=== PATIENT | male | born 1965 | race Hispanic/Latino ===

== ENCOUNTER → 2023-03-02 | Emergency (ER) | payer SELFPAY ==
[~2023-03-02] MED LIST: FENTANYL CITR 100 MCG/2 ML ONE; NA CHLORIDE 0.9% 1,000 ML ONE; TDAP (DIPHTH,PERTUSS(ACELL),TET VAC) 0.5 ML VIAL IMVAC ONE
--- OUTSIDE RECORDS SUMMARY | 2023-03-02 14:57 | XMS REPORT | Continuity of Care Document ---
Author Name Unknown Address [address] [place] [address] thconnect Address [address] [place] [address] [address] [place] [address] Care Team Providers Care Car Shifter Name Role Phone Unavailable Unavailable Unavailable
[2023-03-02 15:45] LABS: Absolute Lymphocytes (CBC) 1.1 K/uL (0.7-4.9); Hematocrit 43.5 % (39.6-49.0); Lymphocytes % 8.9 % (15.3-44.8); MCV 90.4 fL (80-100); MPV 9.3 fL (7.6-11.3); Platelets 263 thou/uL (152-406); RBC Red Blood Cell Count 4.81 M/uL (4.33-5.43)
[2023-03-02 16:10] LABS: Bilirubin Direct 0.1 mg/dL (0-0.2); Bilirubin Indirect, Calculated 0.4 mg/dL (0.2-0.8); Bilirubin Total 0.5 mg/dL (0.2-1.0); Potassium 3.4 mEq/L (3.5-5.1); Protein, Total 8.2 g/dL (6.4-8.2)
--- NOTE | 2023-03-02 17:24 | RAD REPORT ---
EXAM DESCRIPTION: CT - Head C Spine Leon Iraheta - 03/02/2023 4:36 pm CLINICAL HISTORY: fall from roof COMPARISON: No comparisons TECHNIQUE: Head and cervical spine CT images were obtained without IV contrast. Chest, abdomen, and pelvis CT images were obtained following intravenous administration of 95 mL Isovue-300. Multiplanar reformats were generated and reviewed. All CT scans are performed using dose optimization technique as appropriate and may include automated exposure control or mA/KV adjustment according to patient size. FINDINGS: CT HEAD: No intracranial hemorrhage, mass effect, or edema. No evidence of acute territorial infarct. No midli ne shift or abnormal fluid collection. The ventricles are normal in caliber and configuration for age . Basal cisterns are patent. Mastoid aircells and paranasal sinuses are clear. No acute skull fractur e. CT CERVICAL SPINE: No acute cervical spine fracture or subluxation. Vertebral body heights are well maintained. Facet natalie ints are normal in alignment. No hyperattenuating canal hematoma. Extensive dental and periodontal di sease, with large periapical collections along the roots of the right posterior-most 3 maxillary mola rs. Prevertebral and paraspinous soft tissues are unremarkable. CT CHEST: No pneumothorax, pulmonary contusion or pleural fluid collection. No mediastinal hematoma and the aor ta and pulmonary arteries are unremarkable. No chest will mass or abnormal axillary finding. No displ aced rib fracture or other significant bony finding. CT ABDOMEN/ PELVIS: No evidence of traumatic injury to solid abdominal viscera. Gallbladder and biliary tree are unremark able. No bowel injury or significant finding. No free air, free fluid or abnormal fat stranding. Smal l left inguinal hernia containing fat. No urinary bladder abnormality. Mildly comminuted superior endplate compression deformity at L2. IMPRESSION: Mildly comminuted superior endplate compression deformity at L2. No other acute traumatic findings. Extensive dental and periodontal disease, with large periapical collections along the roots of the ri ght posterior most 3 maxillary molars.
--- NOTE | 2023-03-02 18:11 | ER ---
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 APPROXIMATELY 7 db FT. NO LOC. AMBULATORY ON SCENE. COMPLAINS OF LOWER LUMBAR PAIN AND LEFT FLANK PAIN. Coronavirus screen: Client denies travel out of the [place] in the last 14 days. At this time, the client does not indicate any symptoms associated with coronavirus-19. Ebola Screen: Patient negative for fever greater than or equal to 101.5 degrees Fahrenheit, and additional compatible Ebola Virus Disease symptoms Patient denies exposure to infectious person. Patient denies travel to an Ebola-affected area in the 21 days before illness onset. No symptoms or risks identified at this time. Initial Sepsis Screen: Does the patient meet any 2 criteria? No. Patient's initial sepsis screen is negative. Does the patient have a suspected source of infection? No. Patient's initial sepsis screen is negative. Risk Assessment: Do you want to hurt yourself or someone else? Patient reports no desire to harm self or others. Onset of symptoms was March 02, 2023. Mechanism of Injury: Fall from 1st story approximately 7 feet. 14:55 Method Of Arrival: EMS: [facility] db 14:55 Acuity: STACIE 2 db 15:00 Mechanism of Injury: Fall. db 15:12 Care prior to arrival: Cervical collar in place. Placed on backboard. Trauma event db details: Injury occurred in the [facility]. Trauma Activation: Not Applicable Physician: ED Physician; Name: ; Notified At: ; Arrived At: Physician: General Surgeon; Name: ; Notified At: ; Arrived At: Physician: Radiology; Name: ; Notified At: ; Arrived At: Physician: Respiratory; Name: ; Notified At: ; Arrived At: Physician: Lab; Name: ; Notified At: ; Arrived At: Historical: - Allergies: 15:11 No Known Allergies; db - Home Meds: 15:11 lisinopril 10 mg Oral tablet 1 tabs daily [Active]; db - PMHx: 15:11 High Cholesterol; Hypertensive disorder; db - Immunization history:: Last tetanus immunization: unknown. - Social history:: Smoking status: Patient denies any tobacco usage or history of. - Immunization history: Last tetanus immunization: unknown. Screenin:13 Abuse screen: Denies threats or abuse. Denies injuries from another. Tuberculosis db screening: No symptoms or risk factors identified. 15:14 [facility] ED Fall Risk Assessment (Adult) History of falling in the last 3 months, db including since admission Yes- single mechanical fall (1 pt) Confusion or Disorientation No (0 pts) Intoxicated or Sedated No (0 pts) Impaired Gait No (0 pts) Mobility Assist Device Used No (0 pt) Altered Elimination No (0 pt) Score/Fall Risk Level 0 - 2 = Low Risk Oriented to surroundings, Maintained a safe environment. Nutritional screening: No deficits noted. Primary Survey: 16:15 NO uncontrolled hemorrhage observed. Breathing/Chest: Spontaneous respiratory effort, db equal unlabored respirations, breath sounds clear bilaterally, regular pattern, symmetrical chest rise and fall. Circulation: No external hemorrhage present. Regular and strong central pulse, skin warm/dry/normal color. Disability Client is alert. Exposure/Environment: All clothing and personal items were removed. A warming method has been applied: A warm blanket has been provided to the patient. Reassessment Alertness and Airway: Awake and alert. The airway is patent. Breathing: Spontaneous respiratory effort, equal unlabored respirations, breath sounds clear bilaterally, regular pattern with symmetrical chest rise and fall. Circulation: No external hemorrhage noted. Regular and strong central pulse, skin warm/dry/normal color. Disability: Alert. Assessment: 15:00 Reassessment: BACK BOARD REMOVED BY DR. MORRELL. db 15:12 Reassessment: Patient appears in no apparent distress at this time. Patient and/or db family updated on plan of care and expected duration. Pain level reassessed. Patient is alert, oriented x 3, equal unlabored respirations, skin warm/dry/pink. General: Appears in no apparent distress. comfortable, Behavior is calm, cooperative. Pain: Complains of pain in back. Neuro: Level of Consciousness is awake, alert, obeys commands, Oriented to person, place, time, situation. Respiratory: Airway is patent Respiratory effort is even, unlabored, Respiratory pattern is regular, symmetrical. Musculoskeletal: Circulation, motion, and sensation intact. Capillary refill < 3 seconds, Range of motion: intact in all extremities. Vital Signs: 14:55 BP 120 / 80; Pulse 88; Resp 18; Temp 98; Pulse Ox 97% ; Weight 72.57 kg; Height 4 ft. 6 db in. ; 16:00 BP 133 / 88; Pulse 85; Resp 16; Pulse Ox 99% ; db 17:30 BP 144 / 96; Pulse 90; Resp 16; Pulse Ox 98% on R/A; db 18:33 BP 139 / 96; Pulse 86; Resp 18; Pulse Ox 98% ; db 14:55 Body Mass Index 37.19 (72.57 kg, 139.7 cm) db [place] Coma Score: 15:13 Eye Response: spontaneous(4). Motor Response: obeys commands(6). Verbal Response: db oriented(5). Total: 15. Trauma Score (Adult): 15:13 Eye Response: spontaneous(1); Verbal Response: oriented(1); Motor Response: obeys db commands(2); Systolic BP: > 89 mm Hg(4); Respiratory Rate: 10 to 29 per min(4); [place] Score: 15; Trauma Score: 12 ED Course: 15:02 Patient arrived in ED. iw 15:05 Elsa Field [facility]-C [facility]. kb 15:05 Mason Morrell MD is Attending Physician. kb 15:06 Cait Cooper, MIKE is Primary Nurse. db 15:10 Triage completed. db 15:11 Arm band placed on Patient placed in an exam room. db 15:13 Patient has correct armband on for positive identification. Bed in low position. Call db light in reach. Side rails up X2. 15:13 Patient maintains SpO2 saturation greater than 95% on room air. db 15:30 Inserted saline lock: 20 gauge in right antecubital area, using aseptic technique. bc6 Blood collected. 18:00 Thermoregulation: warm blanket given to patient. db 18:10 Germain Aggarwal MD is Referral Physician. ec2 18:45 Provided Education on: DISCHARGE. db 18:45 No provider procedures requiring assistance completed. IV discontinued, intact, db bleeding controlled, No redness/swelling at site. Administered Medications: 16:00 Drug: Boostrix Tdap IM 0.5 ml IM once; as a single dose Route: IM; Site: right deltoid; db 18:52 Follow up: Response: (VIS) Vaccine information sheet provided today. Questions and/or db concerns addressed. VIS edition date: Oct 08, 2020.; No adverse reaction 16:15 Drug: fentaNYL (PF) IVP 100 mcg IVP once Route: IVP; Site: right antecubital; db 16:15 Drug: NS 0.9% IV 1000 ml IV at 1 bolus Per protocol; 1000 mL bolus Route: IV; Rate: 1 db bolus; Site: right antecubital; 16:15 CANCELLED (Duplicate Order): diph,pertus(acel),tetanus vac (pf)0.5 ml IM once; db indicated for adults and teenagers 11 to 64 years of age Medication: 18:45 Vaccine Information Statement (VIS) provided today. Questions and/or concerns db addressed. VIS edition date: October 08, 2020. Outcome: 18:10 Discharge ordered by . ec2 18:44 Discharged to home ambulatory, with friend, db 18:44 Condition: stable 18:44 Patient's length of stay in the Emergency Department was greater than 2 hours. Patient's length of stay was extended due to staffing issues within the emergency department. 18:45 Discharge instructions given to patient, Instructed on discharge instructions, follow db up and referral plans. Prescriptions given X 1, 18:53 Patient left the ED. iw Signatures: Elsa Field, INDIAN BLANKET WEAVER-C INDIAN BLANKET WEAVER-Ckb Taylor Rodriguez RN MIKE iw Cait Copoer RN RN db Elaine Meza 6 Mason Morrell MD MD ec2 Corrections: (The following items were deleted from the chart) 18:52 18:45 VIS not applicable for this client. db db 18:53 18:45 VIS not applicable for this client. db db
--- NOTE | 2023-03-02 18:12 | EDPHYS ---
Physician Documentation [facility] Name: Scar Bean Age: 57 yrs Sex: Male : 1965 Arrival Date: 03/02/2023 Time: 14:54 Bed 17 Private MD: ED Physician Mason Morrell HPI: 03/02 15:08 This 57 yrs old Male presents to ER via Unassigned with complaints of Fall ec2 Injury, Back Injury. 15:08 Patient arrives today as a trauma. Patient states that he was working on the roof ec2 subsequently fell off the roof approximately 7 feet. Patient reports no LOC, no blood thinner use. Patient reports history of hypertension, unsure which blood pressure medication he is on. Patient reports general body pain, worse at his mid back and low back. Denies any abdominal pain however does complain of left rib pain.. Historical: - Allergies: 15:11 No Known Allergies; db - Home Meds: 15:11 lisinopril 10 mg Oral tablet 1 tabs daily [Active]; db - PMHx: 15:11 High Cholesterol; Hypertensive disorder; db - Immunization history:: Last tetanus immunization: unknown. - Social history:: Smoking status: Patient denies any tobacco usage or history of. - Immunization history: Last tetanus immunization: unknown. ROS: 15:08 Constitutional: as per hpi ec2 Exam: 15:08 Constitutional: GEN: No acute distress HEENT: -Head: atraumatic -Eyes: EOMI CV: ec2 regular rate LUNGS: no respiratory distress ABD: non-tender, soft, nontender, no guarding, not rigid SKIN: Scattered abrasions noted throughout MSK: No C-spine TTP, c-collar in place. T-spine with tenderness to palpation, no crepitus appreciated. L-spine with tenderness to palpation, no crepitus appreciated. Chest wall with left lower rib TTP, no deformities or crepitus appreciated. RUE w/o bony deformity LUE w/o bony deformity RLE w/o bony deformity LLE w/o bony deformity NEURO: moves all extremities equally, GCS 15 (E4, V5, M6) Vital Signs: 14:55 BP 120 / 80; Pulse 88; Resp 18; Temp 98; Pulse Ox 97% ; Weight 72.57 kg; Height 4 ft. 6 db in. ; 16:00 BP 133 / 88; Pulse 85; Resp 16; Pulse Ox 99% ; db 17:30 BP 144 / 96; Pulse 90; Resp 16; Pulse Ox 98% on R/A; db 18:33 BP 139 / 96; Pulse 86; Resp 18; Pulse Ox 98% ; db 14:55 Body Mass Index 37.19 (72.57 kg, 139.7 cm) db [place] Coma Score: 15:13 Eye Response: spontaneous(4). Motor Response: obeys commands(6). Verbal Response: db oriented(5). Total: 15. Trauma Score (Adult): 15:13 Eye Response: spontaneous(1); Verbal Response: oriented(1); Motor Response: obeys db commands(2); Systolic BP: > 89 mm Hg(4); Respiratory Rate: 10 to 29 per min(4); Esvin Score: 15; Trauma Score: 12 MDM: 15:05 Patient medically screened. 15:08 Data reviewed: vital signs. ED course: Patient arrives today for evaluation after a ec2 fall from the roof. Examination remarkable for MSK findings as noted above. Will obtain CT imaging of the head, C-spine, chest abdomen and pelvis to evaluate for traumatic pathology. Currently considering process such as intracranial brain bleed, C/T/L-spine fractures, solid organ injury, rib fractures.. 16:11 ED course: CBC shows slight leukocytosis. Metabolic profile with slight hypokalemia ec2 noted. Liver profile unremarkable, lipase within normal ranges. . 17:50 ED course: CT of the head, C-spine, chest abdomen and pelvis show mildly comminuted ec2 compression fracture compression fracture at L2. . 18:09 ED course: On reassessment patient with minimal discomfort to the area, will prescribe ec2 pain medications and have him follow-up with orthopedic surgery. Patient with no neurodeficits and intact strength in the bilateral lower extremities.. 03/02 15:08 Order name: Type And Screen ec2 03/02 15:47 Order name: CBC with Automated Diff; Complete Time: 16:10 EDMS 03/02 16:10 Order name: Basic Metabolic Panel; Complete Time: 16:10 EDMS 03/02 16:10 Order name: Liver (Hepatic) Function; Complete Time: 16:10 EDMS 03/02 16:10 Order name: Lipase; Complete Time: 16:10 EDMS 03/02 16:31 Order name: Type and Screen; Complete Time: 16:45 EDMS 03/02 16:36 Order name: ABO/RH no charge; Complete Time: 16:45 EDMS 03/02 15:08 Order name: CT Traumagram (Head C Spine CAP W Con) ec2 03/02 17:25 Order name: CT; Complete Time: 17:49 EDMS 03/02 15:08 Order name: EKG; Complete Time: 19:11 ec2 03/02 15:08 Order name: EKG - Nurse/Tech; Complete Time: 16:07 ec2 03/02 15:08 Order name: IV Saline Lock; Complete Time: 15:30 ec2 03/02 15:08 Order name: Labs collected and sent; Complete Time: 15:30 ec2 03/02 15:08 Order name: NPO; Complete Time: 15:30 ec2 03/02 15:08 Order name: O2 Per Protocol; Complete Time: 15:30 ec2 03/02 15:08 Order name: O2 Sat Monitoring; Complete Time: 15:30 ec2 Administered Medications: 16:00 Drug: Boostrix Tdap IM 0.5 ml IM once; as a single dose Route: IM; Site: right deltoid; db 18:52 Follow up: Response: (VIS) Vaccine information sheet provided today. Questions and/or db concerns addressed. VIS edition date: Oct 08, 2020.; No adverse reaction 16:15 Drug: fentaNYL (PF) IVP 100 mcg IVP once Route: IVP; Site: right antecubital; db 16:15 Drug: NS 0.9% IV 1000 ml IV at 1 bolus Per protocol; 1000 mL bolus Route: IV; Rate: 1 db bolus; Site: right antecubital; 16:15 CANCELLED (Duplicate Order): diph,pertus(acel),tetanus vac (pf)0.5 ml IM once; db indicated for adults and teenagers 11 to 64 years of age Disposition Summary: 03/02/23 18:10 Discharge Ordered Notes: Location: Home ec2 Condition: Stable ec2 Diagnosis - Fracture of lumbar vertebra ec2 Followup: ec2 - With: Germain Aggarwal MD - When: - Reason: Recheck today's complaints Discharge Instructions: - Discharge Summary Sheet ec2 - Lumbar Spine Fracture ec2 Forms: - Medication Reconciliation Form ec2 - Thank You Letter ec2 - Antibiotic Education ec2 - Prescription Opioid Use ec2 - Patient Portal Instructions ec2 - Leadership Thank You Letter ec2 Prescriptions: - acetaminophen-codeine 300-15 mg Oral tablet - take 2 tablet ORAL route 4 times per day as needed for pain; 30 tablet; ec2 Refills: 0, Product Selection Permitted Signatures: Dispatcher [employer] EDElsa Dillon, ARACELI CARTWRIGHT-Cait Taylor, RN RN db Mason Morrell MD MD ec2 Corrections: (The following items were deleted from the chart) 16:15 15:08 Diph,Pertus(Acel),Tetanus Vac (PF) IM 0.5 ml IM once; indicated for adults and db teenagers 11 to 64 years of age ordered. ec2 16:15 16:14 Diph,Pertus(Acel),Tetanus Vac (PF) IM 0.5 ml IM once; indicated for adults and db teenagers 11 to 64 years of age ordered. db
[2023-03-02 20:17] VITALS: BP 139/96; TEMP 98; O2SAT 98
== END ==
LOC: ER 14:54
DX: S32.029A Unspecified fracture of second lumbar vertebra, initial encounter for closed fracture (principal); W13.2XXA Fall from, out of or through roof, initial encounter; I10 Essential (primary) hypertension
CPT/HCPCS: 36415; 70450; 71260; 72125; 74177; 80048; 80076; 83690; 85025; 86850; 86900; 86901; 93005; 96372; 96374; 99285; J3010; J7030; Q9967